=== PATIENT | male | born 1955 | race Caucasian/White ===

== ENCOUNTER 2019-09-11 10:30 | Inpatient (IN) | payer OTHER, MEDICARE ==
[~2019-09-11] VITALS: Ht 175.3 cm; Wt 82.0 kg
[~2019-09-11 10:30] MED LIST: ASPI325T17 PO; GABA-826 PO; HYDR-3245 PO; OXYC-302 PO; TAMS0.4C2 PO; TRAM50TA2 PO
[2020-01-18] MEDS ORDERED: GABA100C PO (10:01)
[2020-01-18] MEDS ORDERED: ACET-1600 PO (10:01)
[2020-01-18] MEDS ORDERED: TADA5TAB2 PO (10:01)
[2020-01-18] MEDS ORDERED: METH750T2 PO (10:01)
[2020-02-12] MEDS ORDERED: LACTATED RINGERS 1,000 ML IV SCH (13:18)
[2020-02-12] MEDS ORDERED: CHLORHEXIDINE 15 ML UDC MM ONE (13:19)
[2020-02-12] MEDS ORDERED: CHLORHEXIDINE 15 ML UDC ONE (13:20)
[2020-02-12] MEDS ORDERED: FENTANYL PF 250 MCG/5ML ONE (13:45)
[2020-02-12] MEDS ORDERED: MIDAZOLAM 1 MG/ML, 2ML ONE (13:45)
[2020-02-12] MEDS ORDERED: PROPOFOL 50 ML ONE (13:47)
[2020-02-12] MEDS ORDERED: EPHEDRINE 50 MG/ML, 1ML ONE (15:33)
[2020-02-12] MEDS ORDERED: LIDOCAINE 1%, 20ML ONE (16:12)
[2020-02-12] MEDS ORDERED: TRANEXAMIC ACID 100 MG/ML, 10ML ONE (16:12)
[2020-02-12] MEDS ORDERED: BUPIVACAINE/PF 0.5% ONE ×2 (16:12→18:13)
[2020-02-12] MEDS ORDERED: OXYcodone 5 MG/5 ML ORAL.SOL UDC PO PRN (16:30)
[2020-02-12] MEDS ORDERED: hydrALAzine 20 MG/ML, 1ML IV PRN (16:30)
[2020-02-12] MEDS ORDERED: PROMETHAZINE 25 MG/ML, 1ML IVPush PRN (16:30)
[2020-02-12] MEDS ORDERED: LABETALOL 5MG/ML, 20ML IV PRN (16:30)
[2020-02-12] MEDS ORDERED: MEPERIDINE/PF 25MG/0.5ML IVPush PRN (16:30)
[2020-02-12] MEDS ORDERED: FENTANYL PF 100 MCG/2ML IV PRN (16:30)
[2020-02-12] MEDS ORDERED: HYDROmorphone 1 MG/ML, 1ML INJ IVPush PRN (16:30)
[2020-02-12] MEDS ORDERED: LORazepam 2 MG/ML, 1ML IVPush PRN (16:30)
[2020-02-12] MEDS ORDERED: ACETAMINOPHEN 325 MG TABLET PO PRN (16:30)
[2020-02-12] MEDS ORDERED: ALBUTEROL SULFATE 2.5 MG/3 ML NPPB PRN (16:30)
[2020-02-12] MEDS ORDERED: DEXAMETHASONE 4 MG/ML, 1ML ONE (18:13)
[2020-02-12] MEDS ORDERED: CEFAZOLIN 1,000 MG ONE (18:13)
[2020-02-12] MEDS ORDERED: ONDANSETRON 2MG/ML, 2ML ONE (18:13)
[2020-02-12] MEDS ORDERED: PROPOFOL 10 MG/ML, 20ML ONE (18:13)
[2020-02-12] MEDS ORDERED: LIDOCAINE-MPF 2% ,5ML ONE (18:13)
[2020-02-12] MEDS ORDERED: ROPIvacaine/PF 0.2%, 100ML 550 ML (check volume) INJ ONE (18:30)
[2020-02-12 20:00] VITALS: BP 115/66
[2020-02-12] MEDS ORDERED: HYDROcodone/APAP 5/325 TABLET PO PRN (21:30)
[2020-02-12] MEDS ORDERED: ONDANSETRON 2MG/ML, 2ML IV PRN (21:30)
[2020-02-12] MEDS ORDERED: morphine SULFATE 10 MG/ML, 1ML IV PRN (21:30)
[2020-02-12] MEDS: KETOROLAC 30 MG/1 ML IV SCH (22:32)
[2020-02-12] MEDS: D5%-0.45NACL+KCL 20MEQ 1,000 ML IV SCH (22:32)
[2020-02-12] MEDS: CEFAZOLIN PMX 1GM/50ML 50 ML IVPB SCH (23:36)
[2020-02-12] MEDS: OXYcodone/APAP 5/325MG TABLET PO PRN (23:41)
[2020-02-13 00:46] VITALS: BP 114/65
[2020-02-13] MEDS ORDERED: CEFAZOLIN PMX 1GM/50ML 50 ML IVPB SCH (02:00)
[2020-02-13 04:18] VITALS: BP 100/60
[2020-02-13] MEDS: KETOROLAC 30 MG/1 ML IV SCH ×2 (06:06→13:27)
[2020-02-13 06:59] VITALS: BP 99/52
[2020-02-13] MEDS: CEFAZOLIN PMX 1GM/50ML 50 ML IVPB SCH (07:31)
[2020-02-13] MEDS: GABAPENTIN 100 MG CAPSULE PO SCH ×2 (07:31→15:59)
[2020-02-13] MEDS: OXYcodone/APAP 5/325MG TABLET PO PRN ×3 (07:32→15:59)
[2020-02-13] MEDS: METHOCARBAMOL 750 MG TABLET PO SCH ×2 (07:32→15:59)
[2020-02-13] MEDS ORDERED: TADALAFIL 5 MG HOMEMEDPO SCH (09:00)
[2020-02-13] MEDS: ACETAMINOPHEN 500 MG TABLET PO SCH ×2 (09:00→15:59)
[2020-02-13] MEDS: D5%-0.45NACL+KCL 20MEQ 1,000 ML IV SCH (10:50)
[2020-02-13] MEDS ORDERED: ASPI-496 PO (15:19)
[2020-02-13] MEDS ORDERED: OXYC5TAB3 PO (15:48)
== END 2020-02-13 16:20 | disposition home or self-care (01) | DRG 469 ==
LOC: ORIP 02-12 13:16 → 4NE 02-12 20:06
PROVIDERS: ADMIT Orthopaedic Surgery; ATTEND Orthopaedic Surgery
PROC: 0QRG0JZ Replacement of Right Tibia with Synthetic Substitute, Open Approach (ICD-10-PCS; 2020-02-12)
PROC: 0YP90JZ Removal of Synthetic Substitute from Right Lower Extremity, Open Approach (ICD-10-PCS; 2020-02-12)
PROC: 0SRF0JZ Replacement of Right Ankle Joint with Synthetic Substitute, Open Approach (ICD-10-PCS; principal; 2020-02-12 15:00)
PROC: 0QBP0ZZ Excision of Left Metatarsal, Open Approach (ICD-10-PCS; 2020-02-12 15:00)
DX: M19.071 Primary osteoarthritis, right ankle and foot (principal); M21.622 Bunionette of left foot; Z96.659 Presence of unspecified artificial knee joint; Z20.828 Contact with and (suspected) exposure to other viral communicable diseases
CPT/HCPCS: 73600; 76000; J3490; S0020; 36415; 87635; G0378; J0690; J1100; J1885; J2250; J2405; J2704; J2795; J3010; J3480; J7120

== ENCOUNTER → 2020-01-18 | Outpatient (CLI) | payer OTHER ==
[~2020-01-18] MED LIST changes: +ACET-1600 PO; +GABA100C PO; +METH750T2 PO; +TADA5TAB2 PO
[2020-01-18 10:44] LABS: BASOPHILS # (AUTO) 0.16 x10^3/uL (0-0.1); BASOPHILS % (AUTO) 2 % (0-1); EOSINOPHILS # (AUTO) 0.09 x10^3/uL (0-0.4); EOSINOPHILS % (AUTO) 1 % (1-7); LYMPHOCYTES # (AUTO) 1.88 x10^3/uL (1-3.4); LYMPHOCYTES % (AUTO) 18 % (22-44); MD NO; MEAN CORPUSCULAR HEMOGLOBIN 29.8 pg (27.5-34.5); MEAN CORPUSCULAR HGB CONC 32.9 g/dL (33.2-36.2); MEAN CORPUSCULAR VOLUME 90.6 fL (81-97); MEAN PLATELET VOLUME 7.8 fL (7.4-10.4); MONOCYTES # (AUTO) 1.12 x10^3/uL (0.2-0.8); MONOCYTES % (AUTO) 11 % (2-9); NEUTROPHILS # (AUTO) 7.23 x10^3/uL (1.8-6.8); NEUTROPHILS % (AUTO) 69 % (42-75); PLATELET COUNT 411 x10^3/uL (130-400)
== END | disposition home or self-care (01) ==
LOC: STAR 09:26
PROVIDERS: ATTEND Family Medicine
DX: Z01.818 Encounter for other preprocedural examination (principal); M12.871 Other specific arthropathies, not elsewhere classified, right ankle and foot; M25.571 Pain in right ankle and joints of right foot; M21.622 Bunionette of left foot
CPT/HCPCS: 36415; 85025; 87635; 93005

== ENCOUNTER → 2020-02-08 | Outpatient (CLI) | payer OTHER, MEDICARE | END | disposition home or self-care (01) | LOC: RAD 11:40 | PROVIDERS: ATTEND Orthopaedic Surgery | DX: Z11.59 Encounter for screening for other viral diseases (principal); M19.071 Primary osteoarthritis, right ankle and foot; M25.571 Pain in right ankle and joints of right foot | CPT/HCPCS: 36415; 87635 ==

== ENCOUNTER → 2020-06-14 | Outpatient (CLI) | payer OTHER, MEDICARE ==
[~2020-06-14] MED LIST changes: +ASPI-496 PO; +OXYC5TAB3 PO
== END | disposition home or self-care (01) ==
LOC: WOUND 13:54
PROVIDERS: ATTEND Nurse Practitioner Family
DX: T81.32XA Disruption of internal operation (surgical) wound, not elsewhere classified, initial encounter (principal); N40.0 Benign prostatic hyperplasia without lower urinary tract symptoms; M19.071 Primary osteoarthritis, right ankle and foot; Z87.891 Personal history of nicotine dependence; Z96.659 Presence of unspecified artificial knee joint; Y92.238 Other place in hospital as the place of occurrence of the external cause; Y83.8 Other surgical procedures as the cause of abnormal reaction of the patient, or of later complication, without mention of misadventure at the time of the procedure
CPT/HCPCS: 97597; 99214